=== PATIENT | female | born 1995 | race Caucasian/White ===

== ENCOUNTER 2016-02-18 20:16 | Emergency (ER) | payer OTHER ==
[~2016-02-18] VITALS: Ht 162.6 cm; Wt 55.4 kg
[~2016-02-18 20:16] MED LIST: ALBUTEROL SULF8.5 GM IH; ALLEGRA-D 121 TABLET PO; AMOXICILLIN875 MG PO; AUGMENTIN875 MG PO; BACTRIM,SEPT1 TABLET PO; BENADRYL ALLERG25 MG PO; BENADRYL25 MG PO; CAVAN-FOLATE D1 EACH PO; CEFDINIR300 MG; CEPHALEXIN500 MG PO; DOCUSATE SODIU100 MG PO; FERROUS SULFAT325 MG PO; FLEXERIL10 MG PO; FLONASE16 G1 BOTH NARES; HYDROCODON-ACE1 EAC7 PO; IBUPROFEN800 MG PO; INDOCIN50 MG PO; IRON325 MG PO; KEFLEX500 MG PO; MACROBID100 MG PO; MEDROL DOSEPAK4 MG PO; METRONIDAZOLE500 MG PO; MOTRIN800 MG PO; MUCUS-ER MAX1200 MG PO; NAPROSYN500 MG PO; NASALCROM NASAL13 ML BOTH NARES; NITROFURANTOIN100 M3 PO; NIZORAL 2% CREA15 GM TP; PREDNISONE20 MG; PRENATAL GUMMI1 EACH PO; PRENATAL PLUS1 EAC3 PO; PRENATAL TABLE1 EAC3 PO; PRENATAL VITAM1 EAC6 PO; PROAIR HFA8.5 GM IH; PROVENTIL HFA6.7 GM IH; PYRIDIUM200 MG PO; ROBITUSSIN100 MG/5 M PO; SPRINTEC1 EACH; VENTOLIN HFA18 GM IH; ZANTAC150 MG PO; ZITHROMAX Z-PA250 MG PO; ZOFRAN4 MG PO
[2016-02-18 21:11] LABS: EOSINOPHIL COUNT 0.1 K/uL (0-0.3); HEMATOCRIT 38.8 % (36.0-46.0); IMMATURE GRANULOCYTE (%) 0.1 % (0.0-0.7); IMMATURE GRANULOCYTE COUNT 0.1 K/uL; LYMPHOCYTE COUNT 2.2 K/uL (1.0-2.8); MCH 25.8 PG (29.0-34.0); MCHC 33.5 G/DL (30.0-36.0); MCV 77.1 FL (83-99); MEAN PLAT.VOLUME 9.2 uM^3 (9.5-12.4); MONOCYTE (%) 5.5 % (3-12); MONOCYTE COUNT 0.5 K/uL (0-0.8); NEUTROPHIL (%) 67.3 % (45-76); NEUTROPHIL COUNT 5.8 K/uL (1.8-6.4); PLATELET COUNT 352 K/uL (156-360); RBC DIS.WIDTH-CV 13.1 % (11.8-14.6); RBC DIS.WIDTH-SD 36.3 % (39-53); RED BLOOD COUNT 5.03 M/uL (3.80-5.20); WHITE BLOOD COUNT 8.6 K/uL (4.1-10.2)
[2016-02-18 21:19] LABS: CHLORIDE 109 mEq/L (99-109); POTASSIUM 3.4 mEq/L (3.7-5.4); SODIUM 143 mEq/L (136-147)
[2016-02-18 21:20] LABS: CHLORIDE 109 mEq/L (99-109); POTASSIUM 3.3 mEq/L (3.7-5.4); SODIUM 143 mEq/L (136-147)
[2016-02-18 21:21] LABS: GLUCOSE 92 mg/dL (70-99)
[2016-02-18 21:22] LABS: ANION GAP 12 MEQ/L (2-14); GLUCOSE 91 mg/dL (70-99)
[2016-02-18 21:23] LABS: ANION GAP 13 MEQ/L (2-14)
[2016-02-18 21:24] LABS: GFR ESTIMATE (CALCULATED) > 59 mL/min/; TOTAL BILIRUBIN 0.4 mg/dL (0.0-1.0)
[2016-02-18 21:25] LABS: ALKALINE PHOSPHATASE 76 IU/L (3-129); UREA NITROGEN (BUN) 14 mg/dL (9-23)
[2016-02-18 21:26] LABS: GFR ESTIMATE (CALCULATED) > 59 mL/min/
[2016-02-18 21:27] LABS: UREA NITROGEN (BUN) 14 mg/dL (9-23)
[2016-02-18 21:59] LABS: INTERNAL CONTROL VALID? YES; MONOSPOT (MONONUCLEOSIS SEROL) NEGATIVE
[2016-02-18] MEDS ORDERED: AMOXICILLIN500 M1 PO (23:03)
[2016-02-18] MEDS ORDERED: MEDROL DOSEPAK4 MG PO (23:03)
[2016-02-18] MEDS ORDERED: LORTAB 5-325 M1 EACH PO (23:03)
[2016-02-18 23:32] VITALS: BP 117/80
== END 2016-02-18 23:33 | disposition home or self-care (01) ==
LOC: EME → EDBD 20:16 → EME 20:16
PROVIDERS: Emergency Medicine
DX: J32.9 Chronic sinusitis, unspecified (principal); J02.9 Acute pharyngitis, unspecified; J45.909 Unspecified asthma, uncomplicated
CPT/HCPCS: 70491; 71020; 80048; 80053; 85025; 85027; 86308; 87040; 87651 90; 99281; 99284; J1100; J1885; J7030; J7644

== ENCOUNTER 2016-03-16 16:01 | Emergency (ER) | payer OTHER ==
[~2016-03-16] VITALS: Ht 162.6 cm; Wt 55.4 kg
[~2016-03-16 16:01] MED LIST changes: +AMOXICILLIN500 M1 PO; +LORTAB 5-325 M1 EACH PO
[2016-03-16 17:01] LABS: HEMATOCRIT 39.7 % (36.0-46.0); MCH 26.1 PG (29.0-34.0); MCHC 33.5 G/DL (30.0-36.0); MCV 77.8 FL (83-99); MEAN PLAT.VOLUME 9.3 uM^3 (9.5-12.4); PLATELET COUNT 266 K/uL (156-360); RBC DIS.WIDTH-CV 15.2 % (11.8-14.6); RBC DIS.WIDTH-SD 41.8 % (39-53); WHITE BLOOD COUNT 8.1 K/uL (4.1-10.2)
[2016-03-16 17:16] LABS: CHLORIDE 105 mEq/L (99-109); POTASSIUM 3.6 mEq/L (3.7-5.4); SODIUM 142 mEq/L (136-147)
[2016-03-16 17:18] LABS: GLUCOSE 97 mg/dL (70-99)
[2016-03-16 17:19] LABS: ANION GAP 12 MEQ/L (2-14)
[2016-03-16 17:22] LABS: GFR ESTIMATE (CALCULATED) > 59 mL/min/
[2016-03-16 17:23] LABS: UREA NITROGEN (BUN) 18 mg/dL (9-23)
[2016-03-16 17:25] LABS: TROP-I INTERPRETATION NEGATIVE; TROPONIN-I < 0.01 ng/mL (0.0-0.30)
[2016-03-16 19:27] LABS: D-DIMER ELISA 0.39 mg/L FEU (< 0.57)
[2016-03-16 20:08] VITALS: BP 110/72
== END 2016-03-16 20:09 | disposition home or self-care (01) ==
LOC: EME 16:01
DX: S63.502A Unspecified sprain of left wrist, initial encounter (principal); R07.89 Other chest pain; R00.0 Tachycardia, unspecified; W10.8XXA Fall (on) (from) other stairs and steps, initial encounter; J45.909 Unspecified asthma, uncomplicated
CPT/HCPCS: 71020; 73110; 80048; 84484; 85027; 85379; 93005; 99281; 99285

== ENCOUNTER 2016-04-18 14:41 | Emergency (ER) | payer OTHER ==
[~2016-04-18] VITALS: Ht 162.6 cm; Wt 55.5 kg
[2016-04-18 16:51] LABS: ADD MIUA? YES; BILIRUBIN NEGATIVE; BLOOD NEGATIVE; COLOR YELLOW ((YELLOW)); GLUCOSE (STRIP) NEGATIVE; INTERNAL CONTROL VALID? YES; KETONES NEGATIVE; LEUKOCYTES LARGE; NITRITE POSITIVE; PROTEIN (STRIP) NEGATIVE; SPECIFIC GRAVITY 1.017 (1.000-1.030); UROBILINOGEN 0.2 MG/DL (0.2-1.0)
[2016-04-18 17:00] LABS: BACTERIA 1+ /HPF; EPITHELIAL CELLS 2+ /HPF; MUCUS TRACE /LPF; UCUL ADDED? YES; WHITE BLOOD CELLS TNTC /HPF (0-5)
[2016-04-18] MEDS ORDERED: ANTIVERT12.5 MG PO (17:34)
[2016-04-18] MEDS ORDERED: MACROBID100 MG PO (17:34)
[2016-04-18 17:54] VITALS: BP 108/71
== END 2016-04-18 17:55 | disposition home or self-care (01) ==
LOC: EME 14:41
PROVIDERS: Nurse Practitioner Family
DX: N39.0 Urinary tract infection, site not specified (principal); R42 Dizziness and giddiness; M54.89 Other dorsalgia; R11.0 Nausea; Z91.81 History of falling; Z87.891 Personal history of nicotine dependence
CPT/HCPCS: 81003; 84703; 87077; 87086; 87186; 93005; 99281; 99284

== ENCOUNTER 2016-04-21 20:21 | Emergency (ER) | payer OTHER ==
[~2016-04-21] VITALS: Ht 162.6 cm; Wt 55.4 kg
[~2016-04-21 20:21] MED LIST changes: +ANTIVERT12.5 MG PO
[2016-04-21 20:25] VITALS: BP 132/94
== END 2016-04-21 22:46 | disposition home or self-care (01) ==
LOC: EME 20:21
DX: S80.02XA Contusion of left knee, initial encounter (principal); S80.212A Abrasion, left knee, initial encounter; W00.0XXA Fall on same level due to ice and snow, initial encounter
CPT/HCPCS: 73564; 99281; 99283

== ENCOUNTER 2016-05-11 16:56 | Emergency (ER) | payer OTHER ==
[~2016-05-11] VITALS: Ht 162.6 cm; Wt 55.2 kg
[2016-05-11 17:47] LABS: HEMATOCRIT 41.3 % (36.0-46.0); MCHC 32.2 G/DL (30.0-36.0); MCV 80.8 FL (83-99); MEAN PLAT.VOLUME 9.2 uM^3 (9.5-12.4); PLATELET COUNT 306 K/uL (156-360); RBC DIS.WIDTH-SD 41.4 % (39-53); RED BLOOD COUNT 5.11 M/uL (3.80-5.20); WHITE BLOOD COUNT 6.5 K/uL (4.1-10.2)
[2016-05-11 17:57] LABS: CHLORIDE 111 mEq/L (99-109); POTASSIUM 3.9 mEq/L (3.7-5.4); SODIUM 144 mEq/L (136-147)
[2016-05-11 17:59] LABS: GLUCOSE 110 mg/dL (70-99)
[2016-05-11 18:00] LABS: ANION GAP 8 MEQ/L (2-14)
[2016-05-11 18:02] LABS: SERUM ETHYL ALCOHOL < 10 mg/dL
[2016-05-11 18:03] LABS: GFR ESTIMATE (CALCULATED) > 59 mL/min/
[2016-05-11 18:04] LABS: UREA NITROGEN (BUN) 17 mg/dL (9-23)
[2016-05-11 18:13] LABS: QUANTITATIVE HCG < 4.0 MIU/ML
[2016-05-11 19:49] LABS: AMPHETAMINE NEGATIVE (500 ng/mL); BARBITURATES NEGATIVE (200 ng/mL); BENZODIAZEPINES NEGATIVE (150 ng/mL); COCAINE NEGATIVE (150 ng/mL); INTERNAL CONTROLS VALID? YES; METHADONE NEGATIVE (200 ng/mL); METHAMPHETAMINE NEGATIVE (500 ng/mL); OPIATES (MORPHINE) NEGATIVE (100 ng/mL); OXYCODONE NEGATIVE (100 ng/mL); PHENCYCLIDINE NEGATIVE (25 ng/mL); PROPOXYPHENE NEGATIVE (300 ng/mL); THC CANNABINOIDS NEGATIVE (50 ng/mL); TRICYCLIC ANTIDEPRESSANTS NEGATIVE (300 ng/mL)
[2016-05-11 19:52] VITALS: BP 132/93
== END 2016-05-11 20:04 | disposition home or self-care (01) ==
LOC: EME 16:56
DX: F33.1 Major depressive disorder, recurrent, moderate (principal)
CPT/HCPCS: 80048; 84702; 85027; 90839; 99281; 99285; G0480

== ENCOUNTER 2016-05-17 13:10 | Emergency (ER) | payer OTHER ==
[~2016-05-17] VITALS: Ht 162.6 cm; Wt 54.2 kg
[2016-05-17] MEDS ORDERED: MOTRIN800 MG PO (15:09)
[2016-05-17 15:18] VITALS: BP 116/89
== END 2016-05-17 15:30 | disposition home or self-care (01) ==
LOC: EME 13:10
DX: G56.01 Carpal tunnel syndrome, right upper limb (principal)
CPT/HCPCS: 99281; 99283

== ENCOUNTER 2016-06-02 13:42 | Emergency (ER) | payer OTHER ==
[~2016-06-02] VITALS: Ht 162.6 cm; Wt 56.1 kg
[2016-06-02 15:34] LABS: HEMATOCRIT 45.1 % (36.0-46.0); MCH 26.3 PG (29.0-34.0); MCHC 32.6 G/DL (30.0-36.0); MCV 80.7 FL (83-99); MEAN PLAT.VOLUME 9.1 uM^3 (9.5-12.4); PLATELET COUNT 316 K/uL (156-360); RBC DIS.WIDTH-CV 13.8 % (11.8-14.6); RBC DIS.WIDTH-SD 40.5 % (39-53); RED BLOOD COUNT 5.59 M/uL (3.80-5.20)
[2016-06-02 15:40] LABS: ADD MIUA? YES; BILIRUBIN NEGATIVE; BLOOD MODERATE; COLOR YELLOW ((YELLOW)); GLUCOSE (STRIP) NEGATIVE; KETONES NEGATIVE; LEUKOCYTES LARGE; NITRITE POSITIVE; PROTEIN (STRIP) 30; SPECIFIC GRAVITY 1.019 (1.000-1.030); UROBILINOGEN 0.2 MG/DL (0.2-1.0)
[2016-06-02 15:45] LABS: CHLORIDE 109 mEq/L (99-109); POTASSIUM 4.2 mEq/L (3.7-5.4); SODIUM 142 mEq/L (136-147)
[2016-06-02 15:47] LABS: GLUCOSE 77 mg/dL (70-99)
[2016-06-02 15:48] LABS: ANION GAP 11 MEQ/L (2-14)
[2016-06-02 15:49] LABS: TOTAL BILIRUBIN 0.5 mg/dL (0.0-1.0)
[2016-06-02 15:51] LABS: ALKALINE PHOSPHATASE 76 IU/L (3-129); GFR ESTIMATE (CALCULATED) > 59 mL/min/
[2016-06-02 15:52] LABS: UREA NITROGEN (BUN) 17 mg/dL (9-23)
[2016-06-02 15:59] LABS: QUANTITATIVE HCG < 4.0 MIU/ML
[2016-06-02 16:04] LABS: BACTERIA 3+ /HPF; EPITHELIAL CELLS RARE /HPF; MUCUS NONE SEEN /LPF; UCUL ADDED? YES; WHITE BLOOD CELLS TNTC /HPF (0-5)
[2016-06-02] MEDS ORDERED: LIDOCAINE20 MG/1 M5 PO (17:32)
[2016-06-02] MEDS ORDERED: KEFLEX500 MG PO (17:32)
[2016-06-02] MEDS ORDERED: ZOFRAN ODT8 MG PO (17:32)
[2016-06-02 17:40] VITALS: BP 117/74
== END 2016-06-02 17:40 | disposition home or self-care (01) ==
LOC: EME 13:42 → RME 13:42
DX: N30.00 Acute cystitis without hematuria (principal); R11.2 Nausea with vomiting, unspecified; R13.10 Dysphagia, unspecified; J45.909 Unspecified asthma, uncomplicated; Z87.891 Personal history of nicotine dependence
CPT/HCPCS: 80053; 81003; 84702; 85027; 87077; 87086; 87186; 99281; 99284

== ENCOUNTER 2016-06-11 14:06 | Emergency (ER) | payer OTHER ==
[~2016-06-11] VITALS: Ht 162.6 cm; Wt 55.6 kg
[~2016-06-11 14:06] MED LIST changes: +LIDOCAINE20 MG/1 M5 PO; +ZOFRAN ODT8 MG PO
[2016-06-11] MEDS ORDERED: ZITHROMAX Z-PA250 MG PO (16:09)
[2016-06-11] MEDS ORDERED: VENTOLIN HFA18 GM IH (16:09)
[2016-06-11 16:28] VITALS: BP 121/79
== END 2016-06-11 16:29 | disposition home or self-care (01) ==
LOC: EME 14:06
DX: J20.9 Acute bronchitis, unspecified (principal); J45.909 Unspecified asthma, uncomplicated
CPT/HCPCS: 94640; 99281; 99284

== ENCOUNTER 2016-06-14 11:11 | Emergency (ER) | payer OTHER ==
[~2016-06-14] VITALS: Ht 162.6 cm; Wt 55.9 kg
[2016-06-14 11:24] VITALS: BP 106/70
[2016-06-14] MEDS ORDERED: AMOXICILLIN500 MG PO (11:36)
== END 2016-06-14 11:44 | disposition home or self-care (01) ==
LOC: EME 11:11
DX: H66.92 Otitis media, unspecified, left ear (principal); J06.9 Acute upper respiratory infection, unspecified
CPT/HCPCS: 99281; 99282

== ENCOUNTER 2016-06-25 13:00 | Emergency (ER) | payer OTHER ==
[~2016-06-25] VITALS: Ht 162.6 cm; Wt 56.4 kg
[~2016-06-25 13:00] MED LIST changes: +AMOXICILLIN500 MG PO
[2016-06-25 13:29] VITALS: BP 121/86
[2016-06-25] MEDS ORDERED: PREDNISONE20 MG PO (15:06)
[2016-06-25] MEDS ORDERED: BENADRYL50 MG PO (15:06)
== END 2016-06-25 15:28 | disposition home or self-care (01) ==
LOC: EME 13:00
DX: L25.9 Unspecified contact dermatitis, unspecified cause (principal)
CPT/HCPCS: 99281; 99284; J7512

== ENCOUNTER 2016-07-26 12:00 | Emergency (ER) | payer OTHER ==
[~2016-07-26] VITALS: Ht 162.6 cm; Wt 56.1 kg
[~2016-07-26 12:00] MED LIST changes: +BENADRYL50 MG PO; +PREDNISONE20 MG PO
[2016-07-26 13:31] VITALS: BP 108/81
[2016-07-26 14:14] LABS: HEMATOCRIT 44.2 % (36.0-46.0); MCH 27.1 PG (29.0-34.0); MCHC 33.5 G/DL (30.0-36.0); MCV 80.8 FL (83-99); MEAN PLAT.VOLUME 8.9 uM^3 (9.5-12.4); PLATELET COUNT 261 K/uL (156-360); RBC DIS.WIDTH-SD 41.3 % (39-53); RED BLOOD COUNT 5.47 M/uL (3.80-5.20); WHITE BLOOD COUNT 5.6 K/uL (4.1-10.2)
[2016-07-26 14:25] LABS: CHLORIDE 107 mEq/L (99-109); POTASSIUM 3.6 mEq/L (3.7-5.4); SODIUM 141 mEq/L (136-147)
[2016-07-26 14:27] LABS: GLUCOSE 79 mg/dL (70-99)
[2016-07-26 14:29] LABS: ANION GAP 9 MEQ/L (2-14); TOTAL BILIRUBIN 0.4 mg/dL (0.0-1.0)
[2016-07-26 14:31] LABS: ALKALINE PHOSPHATASE 76 IU/L (3-129); GFR ESTIMATE (CALCULATED) > 59 mL/min/
[2016-07-26 14:32] LABS: UREA NITROGEN (BUN) 11 mg/dL (9-23)
[2016-07-26 14:41] LABS: QUANTITATIVE HCG < 4.0 MIU/ML
[2016-07-26 16:08] LABS: ADD MIUA? YES; BILIRUBIN NEGATIVE; BLOOD NEGATIVE; COLOR YELLOW ((YELLOW)); GLUCOSE (STRIP) NEGATIVE; KETONES NEGATIVE; LEUKOCYTES LARGE; NITRITE NEGATIVE; PROTEIN (STRIP) 30; SPECIFIC GRAVITY 1.018 (1.000-1.030); UROBILINOGEN 0.2 MG/DL (0.2-1.0)
[2016-07-26 16:20] LABS: BACTERIA RARE /HPF; EPITHELIAL CELLS 2+ /HPF; MUCUS TRACE /LPF; WHITE BLOOD CELLS CLUMP FEW /HPF (0-5)
[2016-07-26 16:32] LABS: UCUL ADDED? NO
== END 2016-07-26 20:26 | disposition left against medical advice (07) ==
LOC: EME 12:00
DX: R10.9 Unspecified abdominal pain (principal); R19.7 Diarrhea, unspecified
CPT/HCPCS: 80053; 81003; 84702; 85027; 99281; 99284

== ENCOUNTER 2016-08-21 14:08 | Emergency (ER) | payer OTHER ==
[~2016-08-21] VITALS: Ht 162.6 cm; Wt 56.3 kg
[2016-08-21] MEDS ORDERED: NAPROSYN500 MG PO (15:05)
[2016-08-21] MEDS ORDERED: VENTOLIN HFA18 GM IH (15:05)
[2016-08-21 15:18] VITALS: BP 113/87
== END 2016-08-21 15:18 | disposition home or self-care (01) ==
LOC: EME 14:08
DX: M94.0 Chondrocostal junction syndrome [Tietze] (principal); J45.909 Unspecified asthma, uncomplicated
CPT/HCPCS: 71020; 93005; 99281; 99283

== ENCOUNTER 2016-08-30 14:13 | Emergency (ER) | payer OTHER ==
[~2016-08-30] VITALS: Ht 162.6 cm; Wt 55.0 kg
[2016-08-30 14:17] VITALS: BP 101/83
== END 2016-08-30 16:27 | disposition left against medical advice (07) ==
LOC: EME 14:13
DX: R09.89 Other specified symptoms and signs involving the circulatory and respiratory systems (principal); Z53.21 Procedure and treatment not carried out due to patient leaving prior to being seen by health care provider

== ENCOUNTER 2016-10-13 11:20 | Emergency (ER) | payer OTHER ==
[~2016-10-13] VITALS: Ht 162.6 cm; Wt 58.7 kg
[2016-10-13 13:42] LABS: INTERNAL CONTROL VALID? YES
[2016-10-13] MEDS ORDERED: FLEXERIL10 MG PO (13:50)
[2016-10-13] MEDS ORDERED: NAPROXEN500 MG PO (13:50)
[2016-10-13 14:08] VITALS: BP 110/82
== END 2016-10-13 14:09 | disposition home or self-care (01) ==
LOC: EME 11:20
PROVIDERS: Physician Assistant
DX: S39.012A Strain of muscle, fascia and tendon of lower back, initial encounter (principal); X58.XXXA Exposure to other specified factors, initial encounter
CPT/HCPCS: 84703; 99281; 99284

== ENCOUNTER 2016-12-22 17:04 | Emergency (ER) | payer OTHER ==
[~2016-12-22] VITALS: Ht 162.6 cm; Wt 59.9 kg
[~2016-12-22 17:04] MED LIST changes: +NAPROXEN500 MG PO
[2016-12-22 18:46] VITALS: BP 110/70
== END 2016-12-22 18:46 | disposition home or self-care (01) ==
LOC: EME 17:04
DX: M79.671 Pain in right foot (principal)
CPT/HCPCS: 73630; 99281; 99282

== ENCOUNTER 2017-01-01 21:24 | Emergency (ER) | payer OTHER ==
[~2017-01-01] VITALS: Ht 162.6 cm; Wt 58.2 kg
[~2017-01-01 21:24] MED LIST changes: +FIORICET 50-301 EAC1 PO; +ZOFRAN ODT4 MG PO
[2017-01-01 21:55] LABS: HEMATOCRIT 42.7 % (36.0-46.0); MCH 29.1 PG (29.0-34.0); MCHC 34.4 G/DL (30.0-36.0); MCV 84.4 FL (83-99); MEAN PLAT.VOLUME 9.2 uM^3 (9.5-12.4); PLATELET COUNT 290 K/uL (156-360); RBC DIS.WIDTH-CV 12.2 % (11.8-14.6); RED BLOOD COUNT 5.06 M/uL (3.80-5.20); WHITE BLOOD COUNT 9.9 K/uL (4.1-10.2)
[2017-01-01 21:57] LABS: ADD MIUA? YES; BILIRUBIN NEGATIVE; BLOOD SMALL; COLOR YELLOW ((YELLOW)); GLUCOSE (STRIP) NEGATIVE; KETONES NEGATIVE; LEUKOCYTES LARGE; NITRITE POSITIVE; PROTEIN (STRIP) 100; SPECIFIC GRAVITY 1.023 (1.000-1.030); UROBILINOGEN 0.2 MG/DL (0.2-1.0)
[2017-01-01 22:01] LABS: CHLORIDE 108 mEq/L (99-109); POTASSIUM 3.8 mEq/L (3.7-5.4); SODIUM 143 mEq/L (136-147)
[2017-01-01 22:03] LABS: GLUCOSE 103 mg/dL (70-99)
[2017-01-01 22:05] LABS: ANION GAP 12 MEQ/L (2-14); TOTAL BILIRUBIN 0.5 mg/dL (0.0-1.0)
[2017-01-01 22:07] LABS: ALKALINE PHOSPHATASE 85 IU/L (3-129); GFR ESTIMATE (CALCULATED) > 59 mL/min/
[2017-01-01 22:08] LABS: UREA NITROGEN (BUN) 18 mg/dL (9-23)
[2017-01-01 22:16] LABS: QUANTITATIVE HCG < 4.0 MIU/ML
[2017-01-01 22:40] LABS: BACTERIA 3+ /HPF; EPITHELIAL CELLS 2+ /HPF; MUCUS RARE /LPF; RED BLOOD CELLS RARE /HPF (0-5); UCUL ADDED? YES; WHITE BLOOD CELLS TNTC /HPF (0-5)
[2017-01-01 22:41] LABS: CASTS NONE SEEN /LPF; CRYSTALS PRESENT
[2017-01-01 22:42] LABS: CALCIUM OXALATE CRYSTALS RARE /HPF
[2017-01-02 00:18] VITALS: BP 114/85
== END 2017-01-02 00:19 | disposition home or self-care (01) ==
LOC: EME 21:24
DX: G43.909 Migraine, unspecified, not intractable, without status migrainosus (principal); N39.0 Urinary tract infection, site not specified; J45.909 Unspecified asthma, uncomplicated; F32.9 Major depressive disorder, single episode, unspecified
CPT/HCPCS: 80053; 81003; 84702; 85027; 87077; 87086; 87186; 99281; 99284

== ENCOUNTER 2017-03-04 12:12 | Emergency (ER) | payer OTHER ==
[~2017-03-04] VITALS: Ht 162.6 cm; Wt 58.4 kg
[2017-03-04 12:48] VITALS: BP 116/89
== END 2017-03-04 15:25 | disposition left against medical advice (07) ==
LOC: EME 12:12
DX: R07.9 Chest pain, unspecified (principal); Z53.21 Procedure and treatment not carried out due to patient leaving prior to being seen by health care provider
CPT/HCPCS: 71046; 93005

== ENCOUNTER 2017-03-07 20:56 | Emergency (ER) | payer OTHER ==
[~2017-03-07] VITALS: Ht 162.6 cm; Wt 57.2 kg
[2017-03-07] MEDS ORDERED: ULTRAM50 MG PO (22:45)
[2017-03-07 22:57] VITALS: BP 118/83
== END 2017-03-07 22:57 | disposition home or self-care (01) ==
LOC: EME 20:56
DX: S93.601A Unspecified sprain of right foot, initial encounter (principal); Y30.XXXA Falling, jumping or pushed from a high place, undetermined intent, initial encounter
CPT/HCPCS: 73610; 73630; 99281; 99283

== ENCOUNTER 2017-03-10 11:53 | Emergency (ER) | payer OTHER ==
[~2017-03-10 11:53] MED LIST changes: +ULTRAM50 MG PO
[2017-03-10] MEDS ORDERED: MOTRIN600 MG PO (12:17)
[2017-03-10] MEDS ORDERED: PEN-VEE K,VEET500 MG PO (12:17)
[2017-03-10] MEDS ORDERED: Magic Mouthwash MM (12:19)
[2017-03-10 12:54] VITALS: BP 126/95
== END 2017-03-10 12:59 | disposition home or self-care (01) ==
LOC: EME 11:53
DX: K12.0 Recurrent oral aphthae (principal); K04.7 Periapical abscess without sinus
CPT/HCPCS: 99281; 99284

== ENCOUNTER 2017-04-22 21:51 | Emergency (ER) | payer OTHER ==
[~2017-04-22] VITALS: Ht 162.6 cm; Wt 56.5 kg
[~2017-04-22 21:51] MED LIST changes: +MOTRIN600 MG PO; +Magic Mouthwash MM; +PEN-VEE K,VEET500 MG PO
[2017-04-22] MEDS ORDERED: MOTRIN800 MG PO (23:03)
[2017-04-22] MEDS ORDERED: MUCINEX D ER T1 EACH PO (23:03)
[2017-04-22] MEDS ORDERED: ZITHROMAX500 MG PO (23:03)
[2017-04-22] MEDS ORDERED: PREDNISONE20 MG PO (23:03)
[2017-04-22 23:12] VITALS: BP 120/90
== END 2017-04-22 23:13 | disposition home or self-care (01) ==
LOC: EME 21:51
DX: J02.9 Acute pharyngitis, unspecified (principal)
CPT/HCPCS: 87651 90; 99281; 99283; J7512

== ENCOUNTER 2017-06-19 03:02 | Emergency (ER) | payer OTHER ==
[~2017-06-19] VITALS: Ht 162.6 cm; Wt 59.9 kg
[~2017-06-19 03:02] MED LIST changes: +MUCINEX D ER T1 EACH PO; +ZITHROMAX500 MG PO
[2017-06-19] MEDS ORDERED: MOTRIN800 MG PO (03:43)
[2017-06-19 04:11] VITALS: BP 116/75
== END 2017-06-19 04:12 | disposition home or self-care (01) ==
LOC: EME 03:02
DX: G56.02 Carpal tunnel syndrome, left upper limb (principal)
CPT/HCPCS: 99281; 99283; J1100

== ENCOUNTER 2017-07-04 20:05 | Emergency (ER) | payer OTHER ==
[~2017-07-04] VITALS: Ht 162.6 cm; Wt 58.7 kg
[2017-07-04 21:06] VITALS: BP 123/89
== END 2017-07-04 21:07 | disposition home or self-care (01) ==
LOC: EME 20:05 → EXP 20:05
DX: S90.862A Insect bite (nonvenomous), left foot, initial encounter (principal); W57.XXXA Bitten or stung by nonvenomous insect and other nonvenomous arthropods, initial encounter
CPT/HCPCS: 99281; 99283

== ENCOUNTER 2017-08-27 17:20 | Emergency (ER) | payer OTHER ==
[~2017-08-27] VITALS: Ht 162.6 cm; Wt 65.4 kg
[2017-08-27 18:09] LABS: APPEARANCE CLEAR ((CLEAR)); BILIRUBIN NEGATIVE; BLOOD MODERATE; COLOR STRAW ((YELLOW)); GLUCOSE (STRIP) NEGATIVE; KETONES NEGATIVE; LEUKOCYTES NEGATIVE; NITRITE NEGATIVE; PROTEIN (STRIP) NEGATIVE; SPECIFIC GRAVITY 1.013 (1.000-1.030); UROBILINOGEN 0.2 MG/DL (0.2-1.0)
[2017-08-27 18:11] LABS: HEMATOCRIT 45.4 % (36.0-46.0); HEMOGLOBIN 15.9 G/DL (11.9-15.5); MCH 30.9 PG (29.0-34.0); MCV 88.3 FL (83-99); PLATELET COUNT 257 K/uL (156-360); RBC DIS.WIDTH-CV 11.9 % (11.8-14.6); RBC DIS.WIDTH-SD 39.3 % (39-53); RED BLOOD COUNT 5.14 M/uL (3.80-5.20); WHITE BLOOD COUNT 8.4 K/uL (4.1-10.2)
[2017-08-27 18:11] LABS: BACTERIA NONE SEEN /HPF; EPITHELIAL CELLS RARE /HPF; MUCUS NONE SEEN /LPF; RED BLOOD CELLS 0-5 /HPF (0-5); UCUL ADDED? NO; WHITE BLOOD CELLS 0-5 /HPF (0-5)
[2017-08-27 18:20] LABS: ALBUMIN 4.4 g/dL (3.2-4.8); CHLORIDE 105 mEq/L (99-109); POTASSIUM 4.8 mEq/L (3.7-5.4); SODIUM 143 mEq/L (136-147)
[2017-08-27 18:23] LABS: GLUCOSE 77 mg/dL (70-99); TOTAL PROTEIN 7.7 g/dL (6.4-8.3)
[2017-08-27 18:24] LABS: TOTAL BILIRUBIN 0.3 mg/dL (0.0-1.0)
[2017-08-27 18:26] LABS: ALKALINE PHOSPHATASE 94 IU/L (3-129); CREATININE 0.9 mg/dL (0.6-1.3); GFR ESTIMATE (CALCULATED) > 59 mL/min/
[2017-08-27 18:27] LABS: UREA NITROGEN (BUN) 20 mg/dL (9-23)
[2017-08-27 18:28] LABS: AST (GOT) 20 IU/L (2-34)
[2017-08-27 18:29] LABS: ALT (GPT) 21 IU/L (3-49)
[2017-08-27 18:30] LABS: LIPASE 22 U/L (1.0-51.0)
[2017-08-27 18:39] LABS: QUANTITATIVE HCG < 4.0 MIU/ML
[2017-08-27] MEDS ORDERED: MAALOX ADVANCE355 ML PO (22:27)
[2017-08-27] MEDS ORDERED: ZANTAC150 MG PO (22:27)
[2017-08-27 22:35] VITALS: BP 112/83
== END 2017-08-27 22:35 | disposition home or self-care (01) ==
LOC: EME 17:20
DX: R10.11 Right upper quadrant pain (principal); R68.83 Chills (without fever); Z87.440 Personal history of urinary (tract) infections
CPT/HCPCS: 76705; 80053; 81003; 83690; 84702; 85027; 99281; 99284

== ENCOUNTER 2017-08-30 20:54 | Emergency (ER) | payer SELFPAY ==
[~2017-08-30] VITALS: Ht 162.6 cm; Wt 64.9 kg
[~2017-08-30 20:54] MED LIST changes: +MAALOX ADVANCE355 ML PO
[2017-08-30 21:48] LABS: HEMOGLOBIN 15.9 G/DL (11.9-15.5); MCH 30.9 PG (29.0-34.0); MCHC 35.3 G/DL (30.0-36.0); MCV 87.4 FL (83-99); PLATELET COUNT 284 K/uL (156-360); RBC DIS.WIDTH-CV 11.9 % (11.8-14.6); RBC DIS.WIDTH-SD 38.5 % (39-53); RED BLOOD COUNT 5.15 M/uL (3.80-5.20); WHITE BLOOD COUNT 8.6 K/uL (4.1-10.2)
[2017-08-30 21:58] LABS: ALBUMIN 4.3 g/dL (3.2-4.8); CHLORIDE 107 mEq/L (99-109); POTASSIUM 4.6 mEq/L (3.7-5.4); SODIUM 142 mEq/L (136-147)
[2017-08-30 21:58] LABS: APPEARANCE CLEAR ((CLEAR)); BILIRUBIN NEGATIVE; BLOOD NEGATIVE; COLOR YELLOW ((YELLOW)); GLUCOSE (STRIP) NEGATIVE; KETONES NEGATIVE; LEUKOCYTES MODERATE; NITRITE NEGATIVE; PROTEIN (STRIP) NEGATIVE; SPECIFIC GRAVITY 1.013 (1.000-1.030); UROBILINOGEN 0.2 MG/DL (0.2-1.0)
[2017-08-30 22:01] LABS: GLUCOSE 87 mg/dL (70-99); TOTAL PROTEIN 7.6 g/dL (6.4-8.3)
[2017-08-30 22:02] LABS: TOTAL BILIRUBIN 0.3 mg/dL (0.0-1.0)
[2017-08-30 22:04] LABS: ALKALINE PHOSPHATASE 89 IU/L (3-129); GFR ESTIMATE (CALCULATED) > 59 mL/min/
[2017-08-30 22:05] LABS: UREA NITROGEN (BUN) 23 mg/dL (9-23)
[2017-08-30 22:08] LABS: ALT (GPT) 48 IU/L (3-49); AST (GOT) 32 IU/L (2-34)
[2017-08-30 22:13] LABS: QUANTITATIVE HCG < 4.0 MIU/ML
[2017-08-30 22:34] LABS: BACTERIA NONE SEEN /HPF; EPITHELIAL CELLS 1+ /HPF; MUCUS TRACE /LPF; RED BLOOD CELLS 0-5 /HPF (0-5); UCUL ADDED? YES; WHITE BLOOD CELLS 15-20 /HPF (0-5)
[2017-08-30] MEDS ORDERED: KEFLEX500 MG PO (23:32)
[2017-08-30 23:46] VITALS: BP 110/76
== END 2017-08-30 23:48 | disposition home or self-care (01) ==
LOC: EME 20:54
DX: N39.0 Urinary tract infection, site not specified (principal); J45.909 Unspecified asthma, uncomplicated; F32.9 Major depressive disorder, single episode, unspecified; F41.9 Anxiety disorder, unspecified; Z87.440 Personal history of urinary (tract) infections
CPT/HCPCS: 80053; 81003; 84702; 85027; 87086; 99281; 99283